=== PATIENT | male | born 1955 | race Caucasian/White ===

== ENCOUNTER 2024-01-17 12:24 | Emergency (ER) | payer MEDICARE, SELFPAY ==
[2024-01-17 12:26] VITALS: BP 192/87; PULSE 95; RESP 21; TEMP 36.8; O2SAT 98; BMI 31.6
[2024-01-17 12:32] VITALS: BP 192/87; PULSE 93; O2SAT 95
--- NOTE | 2024-01-17 12:47 | PC.NURSE ---
DR NORIEGA AT BEDSIDE
--- NOTE | 2024-01-17 12:54 | US_ITS ---
PROCEDURE INFORMATION: Exam: US Scrotum Exam date and time: 01/17/2024 1:16 PM Age: 68 years old Clinical indication: Swelling, testicles or scrotum; Additional info: Testicular swelling/mass TECHNIQUE: Imaging protocol: Real-time ultrasound of the scrotum and contents with color Doppler and image documentation. COMPARISON: No relevant prior studies available. FINDINGS: Right testicle: Normal. No mass. Normal color Doppler and arterial waveforms. No torsion. Left testicle: Normal. No mass. Normal color Doppler and arterial waveforms. No torsion. Epididymides: The left epididymis is normal except for a tiny left epididymal cyst that measures about 3 mm. The right epididymis was not visualized. Scrotum/soft tissues: There is a large complex, loculated fluid collection in the right hemiscrotum with debris, possibly proteinaceous debris/old blood products. This collection measures about 14 x 8.5 x 11 cm. IMPRESSION: 1. No evidence of testicular torsion on either side. 2. Small left epididymal cyst measuring 3 mm. The right epididymis was not visualized. 3. Large complex loculated fluid collection in the right hemiscrotum with debris measuring up to 14 cm.
--- NOTE | 2024-01-17 12:56 | ED_ITS ---
Discharge Plan Disposition Patient Disposition: Home, Self-Care Prescriptions Prescriptions: No Action lisinopril-hydrochlorothiazide 20-12.5 mg tablet 1 tab PO DAILY Referrals Follow up/Referrals: Dheeraj Delacruz MD [Primary Care Provider] - See instructions Activity Restrictions/Add. Instructions Additional Instructions/Restrictions: Follow-up with urology as instructed by our team. There is a very large complex fluid collection/mass noted in your right testicle that is nonspecific and will need further urology follow-up to determine the exact cause and nature of this mass. Clinical Impressions Clinical Impression: Mass, scrotum Instructions Patient Instructions: DI for Urinary Tract Infection (UTI), DI for Urinary Tract Infection in Children Discharge ED Provider: Jayson Arreaga General Adult HPI General Chief complaint: Urogenital-Male Stated complaint: draining of hydro-seal- sent by Dr. Delacruz Time Seen by Provider: 01/17/24 12:46 History of Present Illness HPI narrative: Patient is a 68-year-old male presenting today with right testicular pain and swelling. This has been ongoing and worsening over the last 4 years. States this began when he got kicked in the groin by a horse. Since that time he had significant worsening of his pain and swelling. He was seen by his primary care doctor several years ago told it was a hydrocele and that it needed to be drained but the patient has neglected it up until today. States that he has significant discomfort with it given its size. No sudden component or change. Denies any other systemic symptoms. Related Data Home Medications Medication Instructions Recorded Confirmed lisinopril 20 1 tab PO DAILY 01/17/24 01/17/24 mg-hydrochlorothiazide 12.5 mg tablet Allergies Allergy/AdvReac Type Severity Reaction Status Date / Time No Known Allergies Allergy Verified 01/17/24 13:00 [facility] Disclaimer: The information contained in this section may have been updated after the levi ent was seen, as this information can be updated by other users. Medical History (Updated 01/17/24 @ 14:59 by Jayson Arreaga MD) HTN (hypertension) Social History Smoking Status: Current every day smoker alcohol intake: never current occupational status: other Travel in the last 8 weeks: None ROS Obtained: Yes All systems reviewed & no additional complaints except as documented Physical Exam General General appearance: alert and in no apparent distress Respiratory Respiratory exam: Present normal lung sounds bilaterally Cardiovascular Cardiovascular exam: Present regular rate exam: Present other (Very large 10 cm swelling in the right testicle with uniform consistency) Neurological Exam Neurological exam: Present alert and oriented X3 Medical Decision Making David Inquiry Pt receiving controlled substance: No Vital Signs: 01/17/24 12:26 01/17/24 12:32 01/17/24 14:30 Temperature 98.3 F Temperature Source Oral Pulse Rate 93 H 70 Pulse Rate [Right] 95 H Respiratory Rate 21 Blood Pressure 192/87 H 149/77 H Blood Pressure [Right Arm] 192/87 H Blood Pressure Mean 101 Blood Pressure Mean [Right Arm] 122 Blood Pressure Source [Right Arm] Automatic Cuff 02 Sat by Pulse Oximetry 98 95 98 Oxygen Delivery Method Room Air Room Air Orders (Tests/Meds): ORDERS Category Date Time Status scrotum US [US Testicular] Stat Ultrasound 01/17/24 12:54 Completed Medical Decision Narrative: 68-year-old with very large right testicular swelling has been ongoing and worsening for the last 4 years. Was told that this was a hydrocele in the past which is possible but he is never had an ultrasound to confirm the diagnosis. Other things in the differential would be testicular cancer, varicocele, hernia etc. Will get a scrotal ultrasound for further evaluation. Reassessment at 3 PM very large complex likely fluid collection with debris measuring up to 14 cm that is nonspecific found on ultrasound. This is been ongoing for 4 years and worsening no emergency at this point. However he will need close urology follow-up we are attempting to make an appoint with Dr. Taveras/Corbin's office and will send the patient for outpatient follow-up. Critical Care Critical Care Time Critical Care Time: No
--- NOTE | 2024-01-17 13:11 | PC.NURSE ---
Pt to u/s via wheelchair
--- NOTE | 2024-01-17 13:47 | PC.NURSE ---
PT RETURNED FROM US
--- NOTE | 2024-01-17 13:48 | PC.NURSE ---
Pt returned from u/s
--- NOTE | 2024-01-17 14:27 | PC.NURSE ---
Rounded on pt. No needs voiced at this time. Call light within reach.
[2024-01-17 14:30] VITALS: BP 149/77; PULSE 70; O2SAT 98
[2024-01-17 15:15] VITALS: BP 146/71; PULSE 77; RESP 18; TEMP 36.8; O2SAT 99
== END 2024-01-17 15:15 | disposition home or self-care (01) ==
PROVIDERS: Emergency Provider Student in an Organized Health Care Education/Training Program; PCP Family Medicine
DX: N50.89 Other specified disorders of the male genital organs (principal); I10 Essential (primary) hypertension; F17.210 Nicotine dependence, cigarettes, uncomplicated
CPT/HCPCS: 76870; 99284